=== PATIENT | female | born 1955 | race Caucasian/White ===

== ENCOUNTER 2017-09-03 08:29 | Inpatient (IN) | payer BC, OTHER ==
[~2017-09-03 08:29] MED LIST: Bisacodyl 5 MG Tab PO PRN; Cyclobenzaprine 10 MG Tab PO PRN; Iodine/Sodium Iodide 2% Tincture 30 ML Bottle ONE; Ketorolac 15 MG/ML SDV IVPUSH PRN; Lidocaine 1%/Sod Bicarbonate in NS 8.4% 1 ML Syringe IDERM PRN; Magnesium Hydroxide 400 MG/5 ML Susp 30 ML Cup PO PRN; Morphine 2 MG/ML Syringe IVPUSH PRN; Ondansetron 4 MG/2 ML SDV IVPUSH PRN; Pregabalin 25 MG Cap PO SCH; Sennosides 8.6 MG Tab PO PRN; Sodium Chloride 0.9% 10 ML Syringe FLUSH PRN; Vancomycin 1 GM SDV ONE; ceFAZolin 1 GM Vial ONE
[2017-09-03] MEDS: Lactated Ringers 1,000 ML IV SCH ×2 (08:45→16:45)
--- NOTE | 2017-09-03 08:55 | PCM.PREANE ---
Preanesthetic Assessment - Procedure Proposed Procedure: right total hip replacement - Anesthesia/Transfusion/Family Hx Anesthesia History: Prior Anesthesia Without Reaction Type of Anesthesia Reaction: Other (see below) (nausea and comit 1972 - no anesthesia problems since) Family History of Anesthesia Reaction: No Transfusion History: No Prior Transfusion(s) - Review of Systems General: No Symptoms Pulmonary: No Symptoms Cardiovascular: No Symptoms Gastrointestinal: No Symptoms, Nausea (intermitttently for 2 months) Neurological: No Symptoms Other: Reports: Depression, Anxiety - Physical Assessment NPO Status Date: 09/02/17 NPO Status Time: 21:30 Pulse: 65 O2 Sat by Pulse Oximetry: 96 Respiratory Rate: 16 Blood Pressure: 122/59 Temperature: 98.1 F Height: 5 ft 4 in Weight: 69 kg ASA Class: 2 Mental Status: Alert & Oriented x3 Airway Class: Mallampati = 1 Dentition: Reports: Normal Dentition, Bridge Thyro-Mental Finger Breadths: 3 Mouth Opening Finger Breadths: 3 ROM/Head Extension: Full Lungs: Clear to Auscultation, Normal Respiratory Effort Cardiovascular: Regular Rate, Regular Rhythm - Lab Values: Laboratory Last Values MRSA (PCR) Negative 08/21/17 15:05 - Allergies Allergies/Adverse Reactions: Allergies Allergy/AdvReac Type Severity Reaction Status Date / Time amoxicillin [From Augmentin] Allergy Vomiting Verified 08/31/17 13:06 clavulanic acid Allergy Vomiting Verified 08/31/17 13:06 [From Augmentin] escitalopram [From Lexapro] Allergy Anxiety Verified 08/31/17 13:06 Sulfa (Sulfonamide Allergy Rash Verified 08/31/17 13:06 Antibiotics) - Blood Blood Available: Yes - Acknowledgements Anesthesia Type Planned: Spinal Pt an Appropriate Candidate for the Planned Anesthesia: Yes Alternatives and Risks of Anesthesia Discussed w Pt/Guardian: Yes Pt/Guardian Understands and Agrees with Anesthesia Plan: Yes PreAnesthesia Questionnaire HEENT History: Reports: Allergic Rhinitis, Impaired Vision Cardiovascular History: Reports: Heart Murmur, High Cholesterol Respiratory History: Reports: None, Other (See Below) Gastrointestinal History: Reports: Chronic Constipation, Other (See Below) Other Gastrointestinal History: anal fissure, rectal bleeding RLQ pain Genitourinary History: Reports: Other (See Below) Other Genitourinary History: renal artery stenosis, right renal artery stent 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 (See Below) Other OB/BYN History: post menopausal bleeding, cervical polyp Musculoskeletal History: Reports: Osteoarthritis, Other (See Below) Other Musculoskeletal History: carpal tunnel syndrome, right hip pain Neurological History: Reports: None Psychiatric History: Reports: Anxiety, Depression Endocrine/Metabolic History: Reports: None Hematologic History: Reports: None Immunologic History: Reports: None Oncologic (Cancer) History: Reports: None Dermatologic History: Reports: Other (See Below) Other Dermatologic History: skin lesion - Past Surgical History Head Surgeries/Procedures: Reports: None HEENT Surgical History: Reports: Cataract Surgery Cardiovascular Surgical History: Reports: None Respiratory Surgical History: Reports: None GI Surgical History: Reports: Cholecystectomy Female Surgical History: Reports: None Male Surgical History: Reports: None Endocrine Surgical History: Reports: None Neurological Surgical History: Reports: None Musculoskeletal Surgical History: Reports: None Oncologic Surgical History: Reports: None - SUBSTANCE USE Smoking Status *Q: Former Smoker (quit May 2014) Tobacco Use Within Last Twelve Months: No Second Hand Smoke Exposure: No Days Per Week of Alcohol Use: 1 (rare) Number of Drinks Per Day: 1 Total Drinks Per Week: 1 Recreational Drug Use History: No - HOME MEDS Home Medications: Home Meds Aspirin [Children's Aspirin] 81 mg PO DAILY 08/31/17 [History] Ezetimibe [Zetia] 10 mg PO DAILY 08/31/17 [History] Pyridoxine HCl [Vitamin B-6] 100 mg PO DAILY 08/31/17 [History] Simvastatin [Zocor] 10 mg PO DAILY 08/31/17 [History] Ubidecarenone [Coq-10] 100 mg PO DAILY 08/31/17 [History] buPROPion HCl [Wellbutrin Xl] 150 mg PO DAILY 08/31/17 [History] - CURRENT (IN HOUSE) MEDS Current Meds: Current Medications Acetaminophen (Tylenol) 975 mg PO ONETIME ONE Stop: 09/03/17 09:31 Aspirin (Ecotrin) 325 mg PO BID CLAUDIA Bisacodyl (Dulcolax) 5 mg PO DAILY PRN PRN Reason: Constipation Morphine Sulfate 8 mg/Epinephrine HCl 0.3 mg/Cefuroxime Sodium 750 mg/Ketorolac Tromethamine 30 mg/Sodium Chloride 27.9 ml 0 mg .XX ONETIME ONE Stop: 09/03/17 10:31 Cyclobenzaprine HCl (Flexeril) 10 mg PO TID PRN PRN Reason: Spasms Docusate Sodium (Colace) 100 mg PO BID [facility] Famotidine (Pepcid) 20 mg PO Q12H [facility] Lactated Ringer's (Ringers, Lactated) 1,000 mls @ 125 mls/hr IV ASDIRECTED [facility] Cefazolin Sodium/Dextrose 2 gm (/ Premix) 50 mls @ 100 mls/hr IV Q8H [facility] Stop: 09/03/17 23:14 Ketorolac Tromethamine (Toradol) 15 mg IVPUSH Q6H PRN PRN Reason: Pain Lidocaine/Sodium Bicarbonate (Buffered Lidocaine 1% In Ns 8.4%) 0.25 ml IDERM ONETIME PRN PRN Reason: Prior to IV Start Stop: 09/03/17 16:00 Magnesium Hydroxide (Milk Of Magnesia) 30 ml PO BID PRN PRN Reason: Constipation Morphine Sulfate (Morphine) 2 mg IVPUSH Q2H PRN PRN Reason: Breakthrough Pain Ondansetron HCl (Zofran) 4 mg IVPUSH Q6H PRN PRN Reason: Nausea/Vomiting Oxycodone HCl (Oxycontin) 10 mg PO ASDIRECTED [facility] Oxycodone/Acetaminophen (Percocet 325-5 Mg) 1 - 2 tab PO Q4H PRN PRN Reason: Pain Pregabalin (Lyrica) 50 mg PO ASDIRECTED [facility] Senna (Senna) 8.6 mg PO BID PRN PRN Reason: Constipation Sodium Chloride (Saline Flush) 10 ml FLUSH ASDIRECTED PRN PRN Reason: Keep Vein Open Discontinued Medications Bupivacaine HCl (Marcaine 0.25%) Confirm Administered Dose 30 ml .ROUTE .STK- MED ONE Stop: 09/03/17 08:15 Cefazolin Sodium (Ancef) Confirm Administered Dose 2 gm .ROUTE .STK-MED ONE Stop: 09/03/17 08:15 Iodine (Iodine 2% Mild Tincture) Confirm Administered Dose 30 ml .ROUTE .STK- MED ONE Stop: 09/03/17 08:15 Tranexamic Acid (Cyklokapron) Confirm Administered Dose 1,000 mg .ROUTE .STK- MED ONE Stop: 09/03/17 08:15 Vancomycin HCl (Vancomycin) Confirm Administered Dose 1 gm .ROUTE .STK-MED ONE Stop: 09/03/17 08:15
[2017-09-03] MEDS ORDERED: Acetaminophen 325 MG Tab PO ONE (09:30)
[2017-09-03] MEDS ORDERED: oxyCODONE ER 10 MG TAB.ER PO SCH (10:00)
[2017-09-03] MEDS ORDERED: fentaNYL 100 MCG/2 ML SDV ONE (10:01)
[2017-09-03] MEDS ORDERED: Ondansetron 4 MG/2 ML SDV ONE (10:01)
[2017-09-03] MEDS ORDERED: Midazolam 1 MG/ML 2 ML SDV ONE (10:01)
[2017-09-03] MEDS ORDERED: Propofol 200 MG/20 ML SDV ONE ×2 (10:01→11:10)
[2017-09-03] MEDS ORDERED: Lidocaine 1% 4 ML ONE (10:02)
[2017-09-03] MEDS ORDERED: ceFAZolin 1 GM Vial ONE (10:02)
[2017-09-03] MEDS ORDERED: Bupivacaine 0.75% 30 ML SDV ONE (10:11)
[2017-09-03] MEDS ORDERED: 50% Dextrose in Water 50 ML SDV ONE (10:13)
[2017-09-03] MEDS ORDERED: Morphine PF 10 MG/10 ML SDV ONE (10:17)
[2017-09-03] MEDS ORDERED: Phenylephrine/Normal Saline 100 MCG/ML 10 ML Syringe ONE ×2 (10:59→11:07)
[2017-09-03] MEDS ORDERED: Lactated Ringers 1,000 ML ONE ×2 (11:00→11:18)
[2017-09-03] MEDS ORDERED: ePHEDrine 50 MG/ML SDV ONE (11:33)
[2017-09-03] MEDS: Bupivacaine 0.25% 30 ML SDV ONE ×2 (11:38→11:39)
[2017-09-03] MEDS: Morphine 8 MG, EPINEPHrine 0.3 MG, Cefuroxime 750 MG, Ketorolac 30 MG, Sodium Chloride ... ONE ×5 (11:38)
[2017-09-03] MEDS ORDERED: diphenhydrAMINE 50 MG/ML SDV IVPUSH PRN (12:12)
[2017-09-03] MEDS ORDERED: fentaNYL 100 MCG/2 ML SDV IVPUSH PRN (12:12)
--- NOTE | 2017-09-03 12:14 | PCM.POSTAN ---
POST ANESTHESIA ASSESSMENT - MENTAL STATUS Mental Status: Alert, Oriented - VITAL SIGNS Pulse Rate: 79 SaO2: 93 Resp Rate: 12 Blood Pressure: 97/56 Temperature: 36.9 C - RESPIRATORY Respiratory Status: Respiratory Rate WNL, Airway Patent, O2 Saturation Stable, Supplemental Oxygen - CARDIOVASCULAR CV Status: Pulse Rate WNL, Blood Pressure Stable - GASTROINTESTINAL GI Status: No Symptoms - PAIN Pain Score: 0 - POST OP HYDRATION Hydration Status: Adequate & Stable - OBSERVATIONS Free Text/Narrative:: no anesthesia complications noted
--- NOTE | 2017-09-03 13:02 | CR ---
Pelvis and right hip: AP view of the pelvis was obtained as well as lateral views of the right hip. Comparison: No prior study. Recently placed right hip prosthesis is seen. Components are aligned. Soft tissue air is noted from the surgical procedure. Mild joint space narrowing is seen superiorly within the left hip. No fracture is seen. Mild degenerative sclerosis is seen inferiorly within the right sacroiliac joint. Impression: 1. Satisfactory postoperative radiographic appearance of recently placed right hip prosthesis. 2. Mild joint space narrowing superiorly within the left hip is seen. Diagnostic code #2
[2017-09-03] MEDS ORDERED: Scopolamine 1.5 MG Transdermal Patch TRDERM PRN (14:49)
[2017-09-03] MEDS: ceFAZolin 2 GM in Premix Bag 1 BAG IV SCH (17:32)
--- NOTE | 2017-09-03 17:37 | PCM.CONS ---
H&P History of Present Illness - General Date of Service: 09/03/17 Admit Problem/Dx: Admission Diagnosis/Problem Admission Diagnosis/Problem Osteoarthritis of hip Source of Information: Patient, Old Records, Provider History Limitations: Reports: No Limitations - History of Present Illness Initial Comments - Free Text/Narative: Fernanda is a 62 yo female patient of Dr. Khoury who is post-operative day 0 of R MALORIE. [facility] medicine was consulted for post-operative medical care. At this time she is stable. Pain is controlled. She denies any chest pain, shortness of breath, palpitations. She is feeling tired. She has had about 3 bouts of mild nausea and vomiting but it has since subsided with medication. She carries a history of: dyslipidemia, depression, anxiety, renal artery stenosis s/p stent. Former smoker who quit in 2014. She is a full code. - Related Data Allergies/Adverse Reactions: Allergies Allergy/AdvReac Type Severity Reaction Status Date / Time Sulfa (Sulfonamide Allergy Rash Verified 09/03/17 09:44 Antibiotics) clavulanic acid AdvReac Vomiting Verified 09/03/17 11:44 [From Augmentin] escitalopram [From Lexapro] AdvReac Anxiety Verified 09/03/17 11:44 Home Medications: Home Meds Aspirin [Children's Aspirin] 81 mg PO DAILY 08/31/17 [History] Ezetimibe [Zetia] 10 mg PO DAILY 08/31/17 [History] Pyridoxine HCl [Vitamin B-6] 100 mg PO DAILY 08/31/17 [History] Simvastatin [Zocor] 10 mg PO DAILY 08/31/17 [History] buPROPion HCl [Wellbutrin Xl] 150 mg PO DAILY 08/31/17 [History] Past Medical History HEENT History: Reports: Allergic Rhinitis, Impaired Vision Cardiovascular History: Reports: Heart Murmur, High Cholesterol Respiratory History: Reports: None, Other (See Below) Gastrointestinal History: Reports: Chronic Constipation, Other (See Below) Other Gastrointestinal History: anal fissure, rectal bleeding RLQ pain Genitourinary History: Reports: Other (See Below) Other Genitourinary History: renal artery stenosis, right renal artery stent 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 (See Below) Other OB/BYN History: post menopausal bleeding, cervical polyp Musculoskeletal History: Reports: Osteoarthritis, Other (See Below) Other Musculoskeletal History: carpal tunnel syndrome, right hip pain Neurological History: Reports: None Psychiatric History: Reports: Anxiety, Depression Endocrine/Metabolic History: Reports: None Hematologic History: Reports: None Immunologic History: Reports: None Oncologic (Cancer) History: Reports: None Dermatologic History: Reports: Other (See Below) Other Dermatologic History: skin lesion - Infectious Disease History Infectious Disease History: Reports: Chicken Pox - Past Surgical History Head Surgeries/Procedures: Reports: None HEENT Surgical History: Reports: Cataract Surgery Cardiovascular Surgical History: Reports: None Respiratory Surgical History: Reports: None GI Surgical History: Reports: Cholecystectomy Female Surgical History: Reports: None Male Surgical History: Reports: None Endocrine Surgical History: Reports: None Neurological Surgical History: Reports: None Musculoskeletal Surgical History: Reports: None Oncologic Surgical History: Reports: None Social & Family History - Family History Family Medical History: Noncontributory - Tobacco Use Smoking Status *Q: Former Smoker Used Tobacco, but Quit: Yes Month/Year Tobacco Last Used: 2014 Second Hand Smoke Exposure: No - Caffeine Use Caffeine Use: Reports: Coffee, Soda, Tea - Alcohol Use Days Per Week of Alcohol Use: 1 (rare) Number of Drinks Per Day: 1 Total Drinks Per Week: 1 - Recreational Drug Use Recreational Drug Use: No Drug Use in Last 12 Months: No H&P Review of Systems - Review of Systems: Review Of Systems: See Below General: Reports: No Symptoms. Denies: Fever, Chills HEENT: Reports: No Symptoms Pulmonary: Reports: No Symptoms. Denies: Shortness of Breath, Pleuritic Chest Pain, Cough Cardiovascular: Reports: No Symptoms. Denies: Chest Pain, Palpitations Gastrointestinal: Reports: No Symptoms. Denies: Abdominal Pain, Diarrhea, Nausea, Vomiting Genitourinary: Reports: No Symptoms. Denies: Dysuria, Frequency, Burning, Pain , Urgency Musculoskeletal: Reports: No Symptoms Skin: Reports: No Symptoms Psychiatric: Reports: No Symptoms Neurological: Reports: No Symptoms Hematologic/Lymphatic: Reports: No Symptoms Immunologic: Reports: No Symptoms Exam - Exam Exam: See Below - Vital Signs Vital Signs: Last Vital Signs Temp 97.0 F 09/03/17 13:06 Pulse 61 09/03/17 16:02 Resp 14 09/03/17 16:02 BP 107/46 L 09/03/17 16:02 Pulse Ox 97 09/03/17 16:02 Weight: 151 lb - Exam Quality Assessment: Supplemental Oxygen (2L nasal cannula), Urinary Catheter, DVT Prophylaxis General: Alert, Oriented, Cooperative, Mild Distress HEENT: PERRLA, Hearing Intact, Mucosa Moist & [place], Nares Patent, Normal Nasal Septum, Posterior Pharynx Clear, Conjunctiva Clear, EOMI, EACs Clear, TMs Clear Neck: Supple, Trachea Midline, 2 Lungs: Clear to Auscultation, Normal Respiratory Effort Cardiovascular: Regular Rate, Regular Rhythm GI/Abdominal Exam: Normal Bowel Sounds, Soft, Non-Tender, No Organomegaly, No Distention, No Abnormal Bruit, No Mass, Pelvis Stable (Female) Exam: Deferred Rectal (Female) Exam: Deferred Back Exam: Normal Inspection, Full Range of Motion Extremities: Normal Inspection, No Pedal Edema, Normal Capillary Refill, Limited Range of Motion (s/p R MALORIE) Peripheral Pulses: 1+: Posterior Tibial (L), Posterior Tibial (R), Dorsalis Pedis (L), Dorsalis Pedis (R) Skin: Warm, Dry, Intact, Other (bandages dry and intact) Neurological: Cranial Nerves Intact (grossly) Neuro Extensive - Mental Status: Alert, Oriented x3, Normal Mood/Affect, Normal Cognition Psychiatric: Alert, Normal Affect, Normal Mood - Patient Data Lab Results Last 24 hrs: Laboratory Results - last 24 hr 09/03/17 Range/Units 09:01 Blood Type O POSITIVE Gel Antibody Screen Negative Consult PN Assessment/Plan POD#: 0 (1) Status post total hip replacement, right SNOMED Code(s): 959472180489, 291058016535 Code(s): Z96.641 - PRESENCE OF RIGHT ARTIFICIAL HIP JOINT Priority: High Current Visit: Yes (2) Dyslipidemia SNOMED Code(s): 449460231 Code(s): E78.5 - HYPERLIPIDEMIA, UNSPECIFIED Priority: Low Current Visit : Yes (3) Other specified depressive episodes SNOMED Code(s): 75037270 Code(s): F32.89 - OTHER SPECIFIED DEPRESSIVE EPISODES Priority: Low Current Visit: No (4) Anxiety SNOMED Code(s): 29634792 Code(s): F41.9 - ANXIETY DISORDER, UNSPECIFIED Priority: Low Current Visit: No (5) PRASHANTH (renal artery stenosis) SNOMED Code(s): 879014233 Code(s): I70.1 - ATHEROSCLEROSIS OF RENAL ARTERY Priority: Low Current Visit: No Problem List Initiated/Reviewed/Updated: Yes My Orders Last 24 Hours: My Active Orders 09/03/17 14:49 Scopolamine [Transderm-Scop] 1.5 mg TRDERM Q72H PRN Plan: I/P: Acute: S/P right total hip arthroplasty - post-operative day 0 -DVT prophylaxis and pain management per primary care team -PT/OT -IS/RT -Monitor oxygen saturation -Titrate oxygen as needed -Vital signs stable -Monitor labs -Pre-operative Hgb was 14.5 Chronic: Dyslipidemia Depression Anxiety Renal artery stenosis s/p stent Plan: CM for discharge planning GI prophylaxis: Pepcid DVT/PE prophylaxis: PATRICIA hanson, SCD, ASA Home medications as indicated Other orders as listed above Routine AM labs She is a full code. Thank you for allowing us to participate in the care of this patient!!
[2017-09-03] MEDS: Metoclopramide 10 MG/2 ML SDV IVPUSH SCH (19:07)
[2017-09-03] MEDS: Docusate Sodium 100 MG Cap PO SCH (20:21)
[2017-09-03] MEDS: Famotidine 20 MG Tab PO SCH (20:21)
[2017-09-03] MEDS ORDERED: Ezetimibe 10 MG Tab PO SCH (21:00)
[2017-09-03] MEDS ORDERED: buPROPion 150 MG Tab.ER PO SCH (21:00)
[2017-09-03] MEDS ORDERED: Vitamin B6-pyridOXINE 50 MG Tab PO SCH (21:00)
[2017-09-03] MEDS ORDERED: Simvastatin 10 MG Tab PO SCH (21:00)
--- NOTE | 2017-09-03 22:15 | PCM.OPNOTE ---
- General Post-Op/Procedure Note Date of Surgery/Procedure: 09/03/17 Operative Procedure(s): right total hip arthroplasty Pre Op Diagnosis: right hip osteoarthrosis Post-Op Diagnosis: Same Anesthesia Technique: Local, MAC, Spinal Primary Surgeon: Ray Khoury Anesthesia Provider: Frederic Wong Template Fitter: Britney Valle Template Fitter: Latoya Jones EBL in mLs: 350 Complications: None Condition: Good Free Text/Narrative:: Intake & Output 09/03/17 09/03/17 09/03/17 06:59 14:59 22:59 Intake Total 150 100 Output Total 350 150 Balance -200 -50
[2017-09-04] MEDS: Metoclopramide 10 MG/2 ML SDV IVPUSH SCH ×4 (00:56→12:42)
[2017-09-04] MEDS: Lactated Ringers 1,000 ML IV SCH (00:57)
[2017-09-04] MEDS: ceFAZolin 2 GM in Premix Bag 1 BAG IV SCH ×2 (01:03→09:19)
[2017-09-04] MEDS: Acetaminophen/oxyCODONE 325-5 MG Tab PO PRN ×2 (04:40→12:37)
--- NOTE | 2017-09-04 07:38 | PCM48HPAN ---
Post Anesthesia Note - EVALUATION WITHIN 48HRS OF ANESTHETIC Vital Signs in Normal Range: Yes Patient Participated in Evaluation: Yes Respiratory Function Stable: Yes Airway Patent: Yes Cardiovascular Function Stable: Yes Hydration Status Stable: Yes Pain Control Satisfactory: Yes Nausea and Vomiting Control Satisfactory: Yes Mental Status Recovered: Yes Pulse Rate: 75 Resp Rate: 18 Temperature: 36.9 C Blood Pressure: 106/74 - COMMENTS/OBSERVATIONS Free Text/Narrative:: no anesthesia complications noted
[2017-09-04] MEDS: Morphine 8 MG, EPINEPHrine 0.3 MG, Cefuroxime 750 MG, Ketorolac 30 MG, Sodium Chloride ... ONE ×5 (08:09)
[2017-09-04] MEDS ORDERED: Non-Formulary Medication 1 Each (Ubidecarenone 100 MG) PO SCH (09:00)
[2017-09-04] MEDS ORDERED: Aspirin 325 MG Tab.EC PO SCH (09:00)
--- NOTE | 2017-09-04 09:03 | PCM.CONSN ---
- General Info Date of Service: 09/04/17 Admission Dx/Problem (Free Text): Admission Diagnosis/Problem Admission Diagnosis/Problem Osteoarthritis of hip Subjective Update: In to see Fernanda today- post-op day 1. She is sitting up in bed working with PT. Overall she is doing quite well. She has no complaints. She has been sleeping well. Good appetite. Urinating. Pain is controlled. No fever, chills, nausea, vomiting, diarrhea, CP, or SOB. Incentive Spirometry. No concerns from nursing. Will be DCd back home today after PT/OT consults. Functional Status: Reports: Pain Controlled, Tolerating Diet, Ambulating, Urinating - Review of Systems General: Reports: No Symptoms. Denies: Fever, Chills HEENT: Reports: No Symptoms Pulmonary: Reports: No Symptoms. Denies: Shortness of Breath, Cough Cardiovascular: Reports: No Symptoms. Denies: Chest Pain, Palpitations, Dyspnea on Exertion Gastrointestinal: Reports: No Symptoms. Denies: Diarrhea, Nausea, Vomiting Genitourinary: Reports: No Symptoms. Denies: Dysuria, Frequency, Burning, Pain Musculoskeletal: Reports: No Symptoms Skin: Reports: No Symptoms Neurological: Reports: No Symptoms Psychiatric: Reports: No Symptoms - Patient Data Vitals - Most Recent: Last Vital Signs Temp 98.4 F 09/04/17 07:38 Pulse 75 09/04/17 07:38 Resp 18 09/04/17 07:38 BP 106/74 09/04/17 07:38 Pulse Ox 97 09/04/17 04:08 Weight - Most Recent: 159 lb 6.4 oz I&O - Last 24 Hours: Intake & Output 09/03/17 09/04/17 09/04/17 22:59 06:59 14:59 Intake Total 100 1864 Output Total 150 168 Balance -50 1696 Lab Results Last 24 Hours: Laboratory Results - last 24 hr 09/03/17 09/04/17 09/04/17 Range/Units 09:01 06:44 07:13 WBC 7.80 (3.98-10.04) K/mm3 RBC 3.61 L (3.98-5.22) M/mm3 Hgb 10.8 L (11.2-15.7) gm/L Hct 33.1 L (34.1-44.9) % MCV 91.7 (79.4-94.8) fl MCH 29.9 (25.6-32.2) pg MCHC 32.6 (32.2-35.5) g/dl RDW Std Deviation 40.4 (36.4-46.3) fL Plt Count 196 (182-369) K/mm3 MPV 9.7 (9.4-12.3) fl Sodium 136 (136-145) mEq/L Potassium 3.9 (3.5-5.1) mEq/L Chloride 104 (98-107) mEq/L Carbon Dioxide 27 (21-32) mEq/L Anion Gap 8.9 (5-15) BUN 11 (7-18) mg/dL Creatinine 0.8 (0.55-1.02) mg/dL Est Cr Clr Drug Dosing 63.77 mL/min Estimated GFR (MDRD) > 60 (>60) mL/min BUN/Creatinine Ratio 13.8 L (14-18) Glucose 96 (80-115) mg/dL Calcium 8.5 (8.5-10.1) mg/dL Total Bilirubin 0.5 (0.2-1.0) mg/dL AST 77 H (15-37) U/L ALT 96 H (14-59) U/L Alkaline Phosphatase 55 (46-116) U/L Total Protein 5.3 L (6.4-8.2) g/dl Albumin 3.0 L (3.4-5.0) g/dl Globulin 2.3 gm/dL Albumin/Globulin Ratio 1.3 (1-2) Blood Type O POSITIVE Gel Antibody Screen Negative Med Orders - Current: Current Medications Aspirin (Ecotrin) 325 mg PO BID [facility] Bisacodyl (Dulcolax) 5 mg PO DAILY PRN PRN Reason: Constipation Bupropion HCl (Wellbutrin Xl) 150 mg PO BEDTIME [facility] Last Admin: 09/03/17 20:20 Dose: 150 mg Cyclobenzaprine HCl (Flexeril) 10 mg PO TID PRN PRN Reason: Spasms Docusate Sodium (Colace) 100 mg PO BID [facility] Last Admin: 09/03/17 20:21 Dose: 100 mg Ezetimibe (Zetia) 10 mg PO BEDTIME [facility] Last Admin: 09/03/17 20:22 Dose: 10 mg Famotidine (Pepcid) 20 mg PO Q12H [facility] Last Admin: 09/03/17 20:21 Dose: 20 mg Lactated Ringer's (Ringers, Lactated) 1,000 mls @ 125 mls/hr IV ASDIRECTED [facility] Last Admin: 09/04/17 00:57 Dose: 125 mls/hr Cefazolin Sodium/Dextrose 2 gm (/ Premix) 50 mls @ 100 mls/hr IV Q8H [facility] Stop: 09/04/17 10:29 Last Admin: 09/04/17 01:03 Dose: 100 mls/hr Ketorolac Tromethamine (Toradol) 15 mg IVPUSH Q6H PRN PRN Reason: Pain Magnesium Hydroxide (Milk Of Magnesia) 30 ml PO BID PRN PRN Reason: Constipation Metoclopramide HCl (Reglan) 10 mg IVPUSH Q6H [facility] Stop: 09/05/17 01:01 Last Admin: 09/04/17 06:04 Dose: 10 mg Miscellaneous Information (Remove Patch) 0 ea TRDERM ONETIME ONE Stop: 09/06/17 14:31 Morphine Sulfate (Morphine) 2 mg IVPUSH Q2H PRN PRN Reason: Breakthrough Pain Ondansetron HCl (Zofran) 4 mg IVPUSH Q6H PRN PRN Reason: Nausea/Vomiting Last Admin: 09/03/17 14:06 Dose: 4 mg Oxycodone/Acetaminophen (Percocet 325-5 Mg) 1 - 2 tab PO Q4H PRN PRN Reason: Pain Last Admin: 09/04/17 04:40 Dose: 2 tab Pyridoxine HCl (Vitamin B6-Pyridoxine) 100 mg PO BEDTIME [facility] Last Admin: 09/03/17 20:22 Dose: 100 mg Scopolamine (Transderm-Scop) 1.5 mg TRDERM Q72H PRN PRN Reason: Nausea Last Admin: 09/03/17 15:07 Dose: 1.5 mg Senna (Senna) 8.6 mg PO BID PRN PRN Reason: Constipation Simvastatin (Zocor) 10 mg PO BEDTIME [facility] Last Admin: 09/03/17 20:21 Dose: 10 mg Sodium Chloride (Saline Flush) 10 ml FLUSH ASDIRECTED PRN PRN Reason: Keep Vein Open Discontinued Medications Acetaminophen (Tylenol) 975 mg PO ONETIME ONE Stop: 09/03/17 09:31 Last Admin: 09/03/17 09:25 Dose: 975 mg Bupivacaine HCl (Marcaine 0.25%) Confirm Administered Dose 30 ml .ROUTE .STK- MED ONE Stop: 09/03/17 08:15 Last Admin: 09/03/17 11:38 Dose: 30 ml Bupivacaine HCl (Sensorcaine-Mpf 0.75%) Confirm Administered Dose 30 ml .ROUTE .STK-MED ONE Stop: 09/03/17 10:12 Cefazolin Sodium (Ancef) Confirm Administered Dose 2 gm .ROUTE .STK-MED ONE Stop: 09/03/17 08:15 Last Admin: 09/03/17 11:34 Dose: 2 gm Cefazolin Sodium (Ancef) Confirm Administered Dose 2 gm .ROUTE .STK-MED ONE Stop: 09/03/17 10:03 Morphine Sulfate 8 mg/Epinephrine HCl 0.3 mg/Cefuroxime Sodium 750 mg/Ketorolac Tromethamine 30 mg/Sodium Chloride 27.9 ml 0 mg .XX ONETIME ONE Stop: 09/03/17 10:31 Last Admin: 09/04/17 08:09 Dose: Not Given Dextrose/Water (Dextrose 50% In Water) Confirm Administered Dose 50 ml .ROUTE .STK-MED ONE Stop: 09/03/17 10:14 Diphenhydramine HCl (Benadryl) 25 mg IVPUSH Q6H PRN PRN Reason: Itching Stop: 09/03/17 14:30 Ephedrine Sulfate (Ephedrine Sulfate) Confirm Administered Dose 50 mg .ROUTE .STK-MED ONE Stop: 09/03/17 11:34 Fentanyl (Sublimaze) Confirm Administered Dose 100 mcg .ROUTE .STK-MED ONE Stop: 09/03/17 10:02 Fentanyl (Sublimaze) 50 mcg IVPUSH Q5M PRN PRN Reason: PAIN Stop: 09/03/17 14:30 Lidocaine HCl (Xylocaine-Mpf 1%) Confirm Administered Dose 4 mls @ as directed .ROUTE .STK-MED ONE Stop: 09/03/17 10:03 Lactated Ringer's (Ringers, Lactated) Confirm Administered Dose 1,000 mls @ as directed .ROUTE .STK-MED ONE Stop: 09/03/17 11:01 Lactated Ringer's (Ringers, Lactated) Confirm Administered Dose 1,000 mls @ as directed .ROUTE .STK-MED ONE Stop: 09/03/17 11:19 Iodine (Iodine 2% Mild Tincture) Confirm Administered Dose 30 ml .ROUTE .STK- MED ONE Stop: 09/03/17 08:15 Last Admin: 09/03/17 11:30 Dose: 18 ml Lidocaine HCl (Xylocaine-Mpf 1%) Confirm Administered Dose 5 ml .ROUTE .STK-MED ONE Stop: 09/03/17 10:09 Lidocaine/Sodium Bicarbonate (Buffered Lidocaine 1% In Ns 8.4%) 0.25 ml IDERM ONETIME PRN PRN Reason: Prior to IV Start Stop: 09/03/17 16:00 Last Admin: 09/03/17 08:44 Dose: 0.25 ml Midazolam HCl (Versed 1 Mg/Ml) Confirm Administered Dose 2 mg .ROUTE .ST-MED ONE Stop: 09/03/17 10:02 Morphine Sulfate (Duramorph Pf) Confirm Administered Dose 10 mg .ROUTE .STK-MED ONE Stop: 09/03/17 10:18 Non-Formulary Medication (Ubidecarenone) 100 mg PO DAILY [facility] Ondansetron HCl (Zofran) Confirm Administered Dose 4 mg .ROUTE .STK-MED ONE Stop: 09/03/17 10:02 Oxycodone HCl (Oxycontin) 10 mg PO ASDIRECTED [facility] Last Admin: 09/03/17 09:25 Dose: 10 mg Phenylephrine HCl (Phenylephrine In Ns 100 Mcg/Ml) Confirm Administered Dose 1 mg .ROUTE .STK-MED ONE Stop: 09/03/17 11:00 Phenylephrine HCl (Phenylephrine In Ns 100 Mcg/Ml) Confirm Administered Dose 1 mg .ROUTE .STK-MED ONE Stop: 09/03/17 11:08 Pregabalin (Lyrica) 50 mg PO ASDIRECTED [facility] Last Admin: 09/03/17 09:25 Dose: 50 mg Propofol (Diprivan 20 Ml) Confirm Administered Dose 200 mg .ROUTE .STK-MED ONE Stop: 09/03/17 10:02 Propofol (Diprivan 20 Ml) Confirm Administered Dose 200 mg .ROUTE .STK-MED ONE Stop: 09/03/17 11:11 Tranexamic Acid (Cyklokapron) Confirm Administered Dose 1,000 mg .ROUTE .STK- MED ONE Stop: 09/03/17 08:15 Last Admin: 09/03/17 11:40 Dose: 1,000 mg Vancomycin HCl (Vancomycin) Confirm Administered Dose 1 gm .ROUTE .STK-MED ONE Stop: 09/03/17 08:15 Last Admin: 09/03/17 11:39 Dose: 1 gm - Exam Quality Assessment: DVT Prophylaxis General: Alert, Oriented, Cooperative, No Acute Distress HEENT: Pupils Equal, Pupils Reactive, EOMI, Mucous Membr. Moist/[place] Neck: Supple Lungs: Clear to Auscultation, Normal Respiratory Effort Cardiovascular: Regular Rate, Regular Rhythm GI/Abdominal Exam: Normal Bowel Sounds, Soft, Non-Tender, No Organomegaly, No Distention, No Abnormal Bruit, No Mass, Pelvis Stable (Female) Exam: Deferred Back Exam: Normal Inspection, Full Range of Motion Extremities: Normal Inspection, Non-Tender, No Pedal Edema, Normal Capillary Refill, Limited Range of Motion (s/p R MALORIE) Peripheral Pulses: 2+: Posterior Tibial (L), Posterior Tibial (R), Dorsalis Pedis (L), Dorsalis Pedis (R) Skin: Warm, Dry, Intact Wound/Incisions: Healing Well, Dressing Dry and Intact, No Drainage Neurological: No New Focal Deficit Psy/Mental Status: Alert, Normal Affect, Normal Mood Consult PN Assessment/Plan POD#: 1 (1) Status post total hip replacement, right SNOMED Code(s): 805830151793, 288571689662 Code(s): Z96.641 - PRESENCE OF RIGHT ARTIFICIAL HIP JOINT Priority: High Current Visit: Yes (2) Dyslipidemia SNOMED Code(s): 478297097 Code(s): E78.5 - HYPERLIPIDEMIA, UNSPECIFIED Priority: Low Current Visit : Yes (3) Other specified depressive episodes SNOMED Code(s): 69398057 Code(s): F32.89 - OTHER SPECIFIED DEPRESSIVE EPISODES Priority: Low Current Visit: No (4) Anxiety SNOMED Code(s): 02238022 Code(s): F41.9 - ANXIETY DISORDER, UNSPECIFIED Priority: Low Current Visit: No (5) PRASHANTH (renal artery stenosis) SNOMED Code(s): 919629530 Code(s): I70.1 - ATHEROSCLEROSIS OF RENAL ARTERY Priority: Low Current Visit: No Problem List Initiated/Reviewed/Updated: Yes My Orders Last 24 Hours: My Active Orders 09/03/17 14:49 Scopolamine [Transderm-Scop] 1.5 mg TRDERM Q72H PRN 09/06/17 14:30 Remove Patch 0 ea TRDERM ONETIME ONE Plan: I/P: Acute: S/P right total hip arthroplasty - post-operative day 0 -DVT prophylaxis and pain management per primary care team -PT/OT -IS/RT -Monitor oxygen saturation -Titrate oxygen as needed -Vital signs stable -Monitor labs -Pre-operative Hgb was 14.5-->10.8 Chronic: Dyslipidemia Depression Anxiety Renal artery stenosis s/p stent Plan: CM for discharge planning GI prophylaxis: Pepcid DVT/PE prophylaxis: PATRICIA hanson, SCD, ASA Home medications as indicated Other orders as listed above Routine AM labs She is a full code. Thank you for allowing us to participate in the care of this patient!! From a hospital standpoint, this patient is clear for discharge.
[2017-09-04] MEDS: Famotidine 20 MG Tab PO SCH (09:18)
[2017-09-04] MEDS: Docusate Sodium 100 MG Cap PO SCH (09:18)
--- NOTE | 2017-09-04 12:46 | PCM.SURGPN ---
- General Info Date of Service: 09/04/17 POD#: 1 Functional Status: Reports: Pain Controlled, Tolerating Diet, Ambulating, Urinating, Incentive Spirometry - Review of Systems Musculoskeletal: Reports: Other (The pt feels prepared for discharge to home.) - Patient Data Vitals - Most Recent: Last Vital Signs Temp 98.4 F 09/04/17 07:38 Pulse 75 09/04/17 07:38 Resp 18 09/04/17 07:38 BP 106/74 09/04/17 07:38 Pulse Ox 97 09/04/17 04:08 Weight - Most Recent: 159 lb 6.4 oz I&O - Last 24 Hours: Intake & Output 09/03/17 09/04/17 09/04/17 22:59 06:59 14:59 Intake Total 100 1864 420 Output Total 150 168 Balance -50 0956 420 Lab Results Last 24 Hrs: Laboratory Results - last 24 hr 09/04/17 09/04/17 Range/Units 06:44 07:13 WBC 7.80 (3.98-10.04) K/mm3 RBC 3.61 L (3.98-5.22) M/mm3 Hgb 10.8 L (11.2-15.7) gm/L Hct 33.1 L (34.1-44.9) % MCV 91.7 (79.4-94.8) fl MCH 29.9 (25.6-32.2) pg MCHC 32.6 (32.2-35.5) g/dl RDW Std Deviation 40.4 (36.4-46.3) fL Plt Count 196 (182-369) K/mm3 MPV 9.7 (9.4-12.3) fl Sodium 136 (136-145) mEq/L Potassium 3.9 (3.5-5.1) mEq/L Chloride 104 (98-107) mEq/L Carbon Dioxide 27 (21-32) mEq/L Anion Gap 8.9 (5-15) BUN 11 (7-18) mg/dL Creatinine 0.8 (0.55-1.02) mg/dL Est Cr Clr Drug Dosing 63.77 mL/min Estimated GFR (MDRD) > 60 (>60) mL/min BUN/Creatinine Ratio 13.8 L (14-18) Glucose 96 (80-115) mg/dL Calcium 8.5 (8.5-10.1) mg/dL Total Bilirubin 0.5 (0.2-1.0) mg/dL AST 77 H (15-37) U/L ALT 96 H (14-59) U/L Alkaline Phosphatase 55 (46-116) U/L Total Protein 5.3 L (6.4-8.2) g/dl Albumin 3.0 L (3.4-5.0) g/dl Globulin 2.3 gm/dL Albumin/Globulin Ratio 1.3 (1-2) Med Orders - Current: Current Medications Aspirin (Ecotrin) 325 mg PO BID [facility] Last Admin: 09/04/17 09:18 Dose: 325 mg Bisacodyl (Dulcolax) 5 mg PO DAILY PRN PRN Reason: Constipation Bupropion HCl (Wellbutrin Xl) 150 mg PO BEDTIME [facility] Last Admin: 09/03/17 20:20 Dose: 150 mg Cyclobenzaprine HCl (Flexeril) 10 mg PO TID PRN PRN Reason: Spasms Docusate Sodium (Colace) 100 mg PO BID [facility] Last Admin: 09/04/17 09:18 Dose: 100 mg Ezetimibe (Zetia) 10 mg PO BEDTIME [facility] Last Admin: 09/03/17 20:22 Dose: 10 mg Famotidine (Pepcid) 20 mg PO Q12H [facility] Last Admin: 09/04/17 09:18 Dose: 20 mg Lactated Ringer's (Ringers, Lactated) 1,000 mls @ 125 mls/hr IV ASDIRECTED [facility] Last Admin: 09/04/17 00:57 Dose: 125 mls/hr Ketorolac Tromethamine (Toradol) 15 mg IVPUSH Q6H PRN PRN Reason: Pain Magnesium Hydroxide (Milk Of Magnesia) 30 ml PO BID PRN PRN Reason: Constipation Metoclopramide HCl (Reglan) 10 mg IVPUSH Q6H [facility] Stop: 09/05/17 01:01 Last Admin: 09/04/17 12:42 Dose: Not Given Miscellaneous Information (Remove Patch) 0 ea TRDERM ONETIME ONE Stop: 09/06/17 14:31 Morphine Sulfate (Morphine) 2 mg IVPUSH Q2H PRN PRN Reason: Breakthrough Pain Ondansetron HCl (Zofran) 4 mg IVPUSH Q6H PRN PRN Reason: Nausea/Vomiting Last Admin: 09/03/17 14:06 Dose: 4 mg Oxycodone/Acetaminophen (Percocet 325-5 Mg) 1 - 2 tab PO Q4H PRN PRN Reason: Pain Last Admin: 09/04/17 12:37 Dose: 2 tab Pyridoxine HCl (Vitamin B6-Pyridoxine) 100 mg PO BEDTIME [facility] Last Admin: 09/03/17 20:22 Dose: 100 mg Scopolamine (Transderm-Scop) 1.5 mg TRDERM Q72H PRN PRN Reason: Nausea Last Admin: 09/03/17 15:07 Dose: 1.5 mg Senna (Senna) 8.6 mg PO BID PRN PRN Reason: Constipation Last Admin: 09/04/17 12:37 Dose: 8.6 mg Simvastatin (Zocor) 10 mg PO BEDTIME [facility] Last Admin: 09/03/17 20:21 Dose: 10 mg Sodium Chloride (Saline Flush) 10 ml FLUSH ASDIRECTED PRN PRN Reason: Keep Vein Open Discontinued Medications Acetaminophen (Tylenol) 975 mg PO ONETIME ONE Stop: 09/03/17 09:31 Last Admin: 09/03/17 09:25 Dose: 975 mg Bupivacaine HCl (Marcaine 0.25%) Confirm Administered Dose 30 ml .ROUTE .STK- MED ONE Stop: 09/03/17 08:15 Last Admin: 09/03/17 11:38 Dose: 30 ml Bupivacaine HCl (Sensorcaine-Mpf 0.75%) Confirm Administered Dose 30 ml .ROUTE .STK-MED ONE Stop: 09/03/17 10:12 Cefazolin Sodium (Ancef) Confirm Administered Dose 2 gm .ROUTE .STK-MED ONE Stop: 09/03/17 08:15 Last Admin: 09/03/17 11:34 Dose: 2 gm Cefazolin Sodium (Ancef) Confirm Administered Dose 2 gm .ROUTE .STK-MED ONE Stop: 09/03/17 10:03 Morphine Sulfate 8 mg/Epinephrine HCl 0.3 mg/Cefuroxime Sodium 750 mg/Ketorolac Tromethamine 30 mg/Sodium Chloride 27.9 ml 0 mg .XX ONETIME ONE Stop: 09/03/17 10:31 Last Admin: 09/04/17 08:09 Dose: Not Given Dextrose/Water (Dextrose 50% In Water) Confirm Administered Dose 50 ml .ROUTE .STK-MED ONE Stop: 09/03/17 10:14 Diphenhydramine HCl (Benadryl) 25 mg IVPUSH Q6H PRN PRN Reason: Itching Stop: 09/03/17 14:30 Ephedrine Sulfate (Ephedrine Sulfate) Confirm Administered Dose 50 mg .ROUTE .STK-MED ONE Stop: 09/03/17 11:34 Fentanyl (Sublimaze) Confirm Administered Dose 100 mcg .ROUTE .STK-MED ONE Stop: 09/03/17 10:02 Fentanyl (Sublimaze) 50 mcg IVPUSH Q5M PRN PRN Reason: PAIN Stop: 09/03/17 14:30 Cefazolin Sodium/Dextrose 2 gm (/ Premix) 50 mls @ 100 mls/hr IV Q8H [facility] Stop: 09/04/17 10:29 Last Admin: 09/04/17 09:19 Dose: 100 mls/hr Lidocaine HCl (Xylocaine-Mpf 1%) Confirm Administered Dose 4 mls @ as directed .ROUTE .STK-MED ONE Stop: 09/03/17 10:03 Lactated Ringer's (Ringers, Lactated) Confirm Administered Dose 1,000 mls @ as directed .ROUTE .STK-MED ONE Stop: 09/03/17 11:01 Lactated Ringer's (Ringers, Lactated) Confirm Administered Dose 1,000 mls @ as directed .ROUTE .STK-MED ONE Stop: 09/03/17 11:19 Iodine (Iodine 2% Mild Tincture) Confirm Administered Dose 30 ml .ROUTE .STK- MED ONE Stop: 09/03/17 08:15 Last Admin: 09/03/17 11:30 Dose: 18 ml Lidocaine HCl (Xylocaine-Mpf 1%) Confirm Administered Dose 5 ml .ROUTE .STK-MED ONE Stop: 09/03/17 10:09 Lidocaine/Sodium Bicarbonate (Buffered Lidocaine 1% In Ns 8.4%) 0.25 ml IDERM ONETIME PRN PRN Reason: Prior to IV Start Stop: 09/03/17 16:00 Last Admin: 09/03/17 08:44 Dose: 0.25 ml Midazolam HCl (Versed 1 Mg/Ml) Confirm Administered Dose 2 mg .ROUTE .STK-MED ONE Stop: 09/03/17 10:02 Morphine Sulfate (Duramorph Pf) Confirm Administered Dose 10 mg .ROUTE .STK-MED ONE Stop: 09/03/17 10:18 Non-Formulary Medication (Ubidecarenone) 100 mg PO DAILY [facility] Ondansetron HCl (Zofran) Confirm Administered Dose 4 mg .ROUTE .STK-MED ONE Stop: 09/03/17 10:02 [facility] Admin: 09/03/17 09:25 Dose: 10 mg Phenylephrine HCl (Phenylephrine In Ns 100 Mcg/Ml) Confirm Administered Dose 1 mg .ROUTE .STK-MED ONE Stop: 09/03/17 11:00 Phenylephrine HCl (Phenylephrine In Ns 100 Mcg/Ml) Confirm Administered Dose 1 mg .ROUTE .STK-MED ONE Stop: 09/03/17 11:08 [facility] Admin: 09/03/17 09:25 Dose: 50 mg Propofol (Diprivan 20 Ml) Confirm Administered Dose 200 mg .ROUTE .STK-MED ONE Stop: 09/03/17 10:02 Propofol (Diprivan 20 Ml) Confirm Administered Dose 200 mg .ROUTE .STK-MED ONE Stop: 09/03/17 11:11 Tranexamic Acid (Cyklokapron) Confirm Administered Dose 1,000 mg .ROUTE .STK- MED ONE Stop: 09/03/17 08:15 Last Admin: 09/03/17 11:40 Dose: 1,000 mg Vancomycin HCl (Vancomycin) Confirm Administered Dose 1 gm .ROUTE .STK-MED ONE Stop: 09/03/17 08:15 Last Admin: 09/03/17 11:39 Dose: 1 gm - Exam Wound/Incisions: Dressing Dry and Intact General: Alert, Cooperative, No Acute Distress Lungs: Normal Respiratory Effort Extremities: Other (NVS intact for RLE. Kosta's negative. Right thigh soft.) - Problem List Review Problem List Initiated/Reviewed/Updated: Yes - My Orders Last 24 Hours: Active Orders 24 hr Category Date Time Status Patient Status [ADT] Routine ADT 09/03/17 19:47 Active Communication Order [RC] ASDIRECTED Care 09/03/17 12:12 Active Notify Provider [RC] ASDIRECTED Care 09/03/17 12:12 Active Pulse Oximetry [RC] ASDIRECTED Care 09/03/17 12:12 Active Ready for Discharge [RC] PER UNIT ROUTINE Care 09/04/17 11:22 Active Aspirin [Ecotrin] Med 09/04/17 09:00 Active 325 mg PO BID Docusate Sodium [Colace] Med 09/03/17 21:00 Active 100 mg PO BID Ezetimibe [Zetia] Med 09/03/17 21:00 Active 10 mg PO BEDTIME Famotidine [Pepcid] Med 09/03/17 21:00 Active 20 mg PO Q12H Metoclopramide [Reglan] Med 09/03/17 19:00 Active 10 mg IVPUSH Q6H Remove Patch Med 09/06/17 14:30 Once 0 ea TRDERM ONETIME ONE Scopolamine [Transderm-Scop] Med 09/03/17 14:49 Active 1.5 mg TRDERM Q72H PRN Simvastatin [Zocor] Med 09/03/17 21:00 Active 10 mg PO BEDTIME Vitamin B6-pyridOXINE Med 09/03/17 21:00 Active 100 mg PO BEDTIME buPROPion [Wellbutrin XL] Med 09/03/17 21:00 Active 150 mg PO BEDTIME EKG 12 Lead [EK] Routine Ther 09/03/17 19:45 Ordered Medication Orders Aspirin (Ecotrin) 325 mg PO BID [facility] Last Admin: 09/04/17 09:18 Dose: 325 mg Bisacodyl (Dulcolax) 5 mg PO DAILY PRN PRN Reason: Constipation Bupropion HCl (Wellbutrin Xl) 150 mg PO BEDTIME [facility] Last Admin: 09/03/17 20:20 Dose: 150 mg Cyclobenzaprine HCl (Flexeril) 10 mg PO TID PRN PRN Reason: Spasms Docusate Sodium (Colace) 100 mg PO BID [facility] Last Admin: 09/04/17 09:18 Dose: 100 mg Admin: 09/03/17 20:21 Dose: 100 mg Ezetimibe (Zetia) 10 mg PO BEDTIME [facility] Last Admin: 09/03/17 20:22 Dose: 10 mg Famotidine (Pepcid) 20 mg PO Q12H [facility] Last Admin: 09/04/17 09:18 Dose: 20 mg Admin: 09/03/17 20:21 Dose: 20 mg Lactated Ringer's (Ringers, Lactated) 1,000 mls @ 125 mls/hr IV ASDIRECTED [facility] Last Admin: 09/04/17 00:57 Dose: 125 mls/hr Infusion: 09/04/17 00:45 Dose: 125 mls/hr Admin: 09/03/17 16:45 Dose: 125 mls/hr Infusion: 09/03/17 16:45 Dose: 125 mls/hr Admin: 09/03/17 08:45 Dose: 125 mls/hr Ketorolac Tromethamine (Toradol) 15 mg IVPUSH Q6H PRN PRN Reason: Pain Magnesium Hydroxide (Milk Of Magnesia) 30 ml PO BID PRN PRN Reason: Constipation Metoclopramide HCl (Reglan) 10 mg IVPUSH Q6H [facility] Stop: 09/05/17 01:01 Last Admin: 09/04/17 12:42 Dose: Admin: 09/04/17 06:04 Dose: 10 mg Admin: 09/04/17 00:56 Dose: 10 mg Admin: 09/03/17 19:07 Dose: 10 mg Miscellaneous Information (Remove Patch) 0 ea TRDERM ONETIME ONE Stop: 09/06/17 14:31 Morphine Sulfate (Morphine) 2 mg IVPUSH Q2H PRN PRN Reason: Breakthrough Pain Ondansetron HCl (Zofran) 4 mg IVPUSH Q6H PRN PRN Reason: Nausea/Vomiting Last Admin: 09/03/17 14:06 Dose: 4 mg Oxycodone/Acetaminophen (Percocet 325-5 Mg) 1 - 2 tab PO Q4H PRN PRN Reason: Pain Last Admin: 09/04/17 12:37 Dose: 2 tab Admin: 09/04/17 04:40 Dose: 2 tab Pyridoxine HCl (Vitamin B6-Pyridoxine) 100 mg PO BEDTIME [facility] Last Admin: 09/03/17 20:22 Dose: 100 mg Scopolamine (Transderm-Scop) 1.5 mg TRDERM Q72H PRN PRN Reason: Nausea Last Admin: 09/03/17 15:07 Dose: 1.5 mg Senna (Senna) 8.6 mg PO BID PRN PRN Reason: Constipation Last Admin: 09/04/17 12:37 Dose: 8.6 mg Simvastatin (Zocor) 10 mg PO BEDTIME [facility] Last Admin: 09/03/17 20:21 Dose: 10 mg Sodium Chloride (Saline Flush) 10 ml FLUSH ASDIRECTED PRN PRN Reason: Keep Vein Open - Assessment Assessment (Free Text/Narrative):: POD#1 - right MALORIE - Plan Plan (Free Text/Narrative):: 1. Hgb 10.8. 2. Xarelto for VTE prophylaxis. The pt is aware and agreeable. 3. Percocet and Flexeril for pain management at home. 4. [facility]. The pt's case was discussed with Dr. Khoury today.
--- NOTE | 2017-09-04 12:49 | PCM.DCSUM1 ---
Discharge Summary - Hospital Course Brief History: Fernanda is a 62 yo female who underwent right MALORIE with Dr. Khoury on 09-03-2017. The procedure was completed under spinal anesthesia. The pt tolerated the procedure well and was admitted to the Medical-Surgical Unit. Medical management was provided by the Hospitalist service. The pt's Hospital course was uneventful. The pt's Hgb on POD#1 was 10.8. SCDs and TEDs were ordered and the pt was discharged with a rx for Xarelto for VTE prophylaxis. A Mepilex dressing was placed at the incision site at the time of surgery and remained clean and dry. The pt participated in P.T. and O.T. and progressed well. She followed the MALORIE precautions. The pt was allowed to WBAT. On POD#1 , the pt was deemed appropriate to discharge to home with her . - Discharge Data Discharge Date: 09/04/17 Discharge Disposition: Home, Self-Care 01 Condition: Good - Patient Summary/Data Operative Procedure(s) Performed: right total hip arthroplasty Consults: Consultations 09/03/17 06:44 OT Evaluation and Treatment [CONS] Routine PT Evaluation and Treatment [CONS] Routine 09/03/17 06:45 Consult to Physician [CONS] Routine - Patient Instructions Diet: Usual Diet as Tolerated Activity: Apply Ice, As Tolerated, Elevate Extremity, Full Weight Bearing Activity, Other: Total hip arthroplasty precautions. Driving: Do Not Drive Showering/Bathing: May Shower Wound/Incision Care: Keep Operative Site/Wound Site Clean and Dry, Do NOT Change Dressing Notify Provider of: Fever, Increased Pain, Swelling and Redness, Drainage, Nausea and/or Vomiting Other/Special Instructions: Please get up and moving around every hour while awake. This helps to prevent blood clots. Please use your walker and have help with mobility as needed. Please take the Xarelto blood thinner medication daily as directed. At home, please complete the exercises that you learned during the Hospital stay. Schedule for physical therapy. Follow the total hip precautions. Use the pain medication as needed. The medication may cause drowsiness and constipation. Contact your primary care provider for instructions if you are constipated. You may use a stool softener like docusate sodium or Colace 100mg twice daily and/or a laxative like Miralax daily for constipation. Increase your water and fiber intake while you are using the pain medication. Please try to wean from use of the pain medication as soon as able. Wear the PATRICIA hose during the day and you may remove these at night. Elevate the limb to decrease swelling. Place ice to the area often. Place a towel between your skin and the blue pad. Use the incentive spirometer often. Take deep breaths throughout the day. Increase your protein intake while you are healing. If you have diabetes, please closely monitor your blood sugars and notify your primary care provider with abnormal values. Call the Clinic with questions or concerns - [phone]. - Discharge Plan Prescriptions/Med Rec: Acetaminophen/oxyCODONE [Percocet 325-5 MG] 1 - 2 tab PO Q6H PRN #60 tablet PRN Reason: Pain Cyclobenzaprine [Flexeril] 10 mg PO TID PRN #40 tablet PRN Reason: Spasms Rivaroxaban [Xarelto] 10 mg PO DAILY #35 tablet Home Medications: Home Meds Aspirin [Children's Aspirin] 81 mg PO DAILY 08/31/17 [History] Ezetimibe [Zetia] 10 mg PO DAILY 08/31/17 [History] Pyridoxine HCl [Vitamin B-6] 100 mg PO DAILY 08/31/17 [History] Simvastatin [Zocor] 10 mg PO DAILY 08/31/17 [History] buPROPion HCl [Wellbutrin Xl] 150 mg PO DAILY 08/31/17 [History] Acetaminophen/oxyCODONE [Percocet 325-5 MG] 1 - 2 tab PO Q6H PRN #60 tablet [Rx] Bisacodyl [Dulcolax] 5 mg PO DAILY PRN tablet 09/04/17 [Rx] Cyclobenzaprine [Flexeril] 10 mg PO TID PRN #40 tablet 09/04/17 [Rx] Docusate Sodium [Colace] 100 mg PO BID cap 09/04/17 [Rx] Famotidine [Pepcid] 20 mg PO Q12H tablet 09/04/17 [Rx] Magnesium Hydroxide [Milk of Magnesia] 30 ml PO BID PRN cup 09/04/17 [Rx] Rivaroxaban [Xarelto] 10 mg PO DAILY #35 tablet 09/04/17 [Rx] Sennosides [Senna] 8.6 mg PO BID PRN tablet 09/04/17 [Rx] Patient Handouts: Total Hip Replacement, Care After, Total Hip Replacement, [id number] Referrals: Britney Valle PA-C [Physician [employer]] - 09/11/17 10:45 am (Please follow- up with Dr. Khoury/Leonard at your previously scheduled appointments on September 11 at 1045am. The next appointment is on SundaySeptember 18 at 1045 am. ) - Patient Data Vitals - Most Recent: Last Vital Signs Temp 98.4 F 09/04/17 07:38 Pulse 75 09/04/17 07:38 Resp 18 09/04/17 07:38 BP 106/74 09/04/17 07:38 Pulse Ox 97 09/04/17 04:08 Weight - Most Recent: 159 lb 6.4 oz I&O - Last 24 hours: Intake & Output 09/03/17 09/04/17 09/04/17 22:59 06:59 14:59 Intake Total 100 1864 420 Output Total 150 168 Balance -50 2265 420 Lab Results - Last 24 hrs: Laboratory Results - last 24 hr 09/04/17 09/04/17 Range/Units 06:44 07:13 WBC 7.80 (3.98-10.04) K/mm3 RBC 3.61 L (3.98-5.22) M/mm3 Hgb 10.8 L (11.2-15.7) gm/L Hct 33.1 L (34.1-44.9) % MCV 91.7 (79.4-94.8) fl MCH 29.9 (25.6-32.2) pg MCHC 32.6 (32.2-35.5) g/dl RDW Std Deviation 40.4 (36.4-46.3) fL Plt Count 196 (182-369) K/mm3 MPV 9.7 (9.4-12.3) fl Sodium 136 (136-145) mEq/L Potassium 3.9 (3.5-5.1) mEq/L Chloride 104 (98-107) mEq/L Carbon Dioxide 27 (21-32) mEq/L Anion Gap 8.9 (5-15) BUN 11 (7-18) mg/dL Creatinine 0.8 (0.55-1.02) mg/dL Est Cr Clr Drug Dosing 63.77 mL/min Estimated GFR (MDRD) > 60 (>60) mL/min BUN/Creatinine Ratio 13.8 L (14-18) Glucose 96 (80-115) mg/dL Calcium 8.5 (8.5-10.1) mg/dL Total Bilirubin 0.5 (0.2-1.0) mg/dL AST 77 H (15-37) U/L ALT 96 H (14-59) U/L Alkaline Phosphatase 55 (46-116) U/L Total Protein 5.3 L (6.4-8.2) g/dl Albumin 3.0 L (3.4-5.0) g/dl Globulin 2.3 gm/dL Albumin/Globulin Ratio 1.3 (1-2) Med Orders - Current: Current Medications Aspirin (Ecotrin) 325 mg PO BID COUNTS INCLUDE 234 BEDS AT THE [facility] Last Admin: 09/04/17 09:18 Dose: 325 mg Bisacodyl (Dulcolax) 5 mg PO DAILY PRN PRN Reason: Constipation Bupropion HCl (Wellbutrin Xl) 150 mg PO BEDTIME COUNTS INCLUDE 234 BEDS AT THE [facility] Last Admin: 09/03/17 20:20 Dose: 150 mg Cyclobenzaprine HCl (Flexeril) 10 mg PO TID PRN PRN Reason: Spasms Docusate Sodium (Colace) 100 mg PO BID COUNTS INCLUDE 234 BEDS AT THE [facility] Last Admin: 09/04/17 09:18 Dose: 100 mg Ezetimibe (Zetia) 10 mg PO BEDTIME COUNTS INCLUDE 234 BEDS AT THE [facility] Last Admin: 09/03/17 20:22 Dose: 10 mg Famotidine (Pepcid) 20 mg PO Q12H COUNTS INCLUDE 234 BEDS AT THE [facility] Last Admin: 09/04/17 09:18 Dose: 20 mg Lactated Ringer's (Ringers, Lactated) 1,000 mls @ 125 mls/hr IV ASDIRECTED COUNTS INCLUDE 234 BEDS AT THE [facility] Last Admin: 09/04/17 00:57 Dose: 125 mls/hr Ketorolac Tromethamine (Toradol) 15 mg IVPUSH Q6H PRN PRN Reason: Pain Magnesium Hydroxide (Milk Of Magnesia) 30 ml PO BID PRN PRN Reason: Constipation Metoclopramide HCl (Reglan) 10 mg IVPUSH Q6H COUNTS INCLUDE 234 BEDS AT THE [facility] Stop: 09/05/17 01:01 Last Admin: 09/04/17 12:42 Dose: Not Given Miscellaneous Information (Remove Patch) 0 ea TRDERM ONETIME ONE Stop: 09/06/17 14:31 Morphine Sulfate (Morphine) 2 mg IVPUSH Q2H PRN PRN Reason: Breakthrough Pain Ondansetron HCl (Zofran) 4 mg IVPUSH Q6H PRN PRN Reason: Nausea/Vomiting Last Admin: 09/03/17 14:06 Dose: 4 mg Oxycodone/Acetaminophen (Percocet 325-5 Mg) 1 - 2 tab PO Q4H PRN PRN Reason: Pain Last Admin: 09/04/17 12:37 Dose: 2 tab Pyridoxine HCl (Vitamin B6-Pyridoxine) 100 mg PO BEDTIME CLAUDIA Last Admin: 09/03/17 20:22 Dose: 100 mg Scopolamine (Transderm-Scop) 1.5 mg TRDERM Q72H PRN PRN Reason: Nausea Last Admin: 09/03/17 15:07 Dose: 1.5 mg Senna (Senna) 8.6 mg PO BID PRN PRN Reason: Constipation Last Admin: 09/04/17 12:37 Dose: 8.6 mg Simvastatin (Zocor) 10 mg PO BEDTIME CLAUDIA Last Admin: 09/03/17 20:21 Dose: 10 mg Sodium Chloride (Saline Flush) 10 ml FLUSH ASDIRECTED PRN PRN Reason: Keep Vein Open Discontinued Medications Acetaminophen (Tylenol) 975 mg PO ONETIME ONE Stop: 09/03/17 09:31 Last Admin: 09/03/17 09:25 Dose: 975 mg Bupivacaine HCl (Marcaine 0.25%) Confirm Administered Dose 30 ml .ROUTE .STK- MED ONE Stop: 09/03/17 08:15 Last Admin: 09/03/17 11:38 Dose: 30 ml Bupivacaine HCl (Sensorcaine-Mpf 0.75%) Confirm Administered Dose 30 ml .ROUTE .STK-MED ONE Stop: 09/03/17 10:12 Cefazolin Sodium (Ancef) Confirm Administered Dose 2 gm .ROUTE .STK-MED ONE Stop: 09/03/17 08:15 Last Admin: 09/03/17 11:34 Dose: 2 gm Cefazolin Sodium (Ancef) Confirm Administered Dose 2 gm .ROUTE .STK-MED ONE Stop: 09/03/17 10:03 Morphine Sulfate 8 mg/Epinephrine HCl 0.3 mg/Cefuroxime Sodium 750 mg/Ketorolac Tromethamine 30 mg/Sodium Chloride 27.9 ml 0 mg .XX ONETIME ONE Stop: 09/03/17 10:31 Last Admin: 09/04/17 08:09 Dose: Not Given Dextrose/Water (Dextrose 50% In Water) Confirm Administered Dose 50 ml .ROUTE .STK-MED ONE Stop: 09/03/17 10:14 Diphenhydramine HCl (Benadryl) 25 mg IVPUSH Q6H PRN PRN Reason: Itching Stop: 09/03/17 14:30 Ephedrine Sulfate (Ephedrine Sulfate) Confirm Administered Dose 50 mg .ROUTE .STK-MED ONE Stop: 09/03/17 11:34 Fentanyl (Sublimaze) Confirm Administered Dose 100 mcg .ROUTE .STK-MED ONE Stop: 09/03/17 10:02 Fentanyl (Sublimaze) 50 mcg IVPUSH Q5M PRN PRN Reason: PAIN Stop: 09/03/17 14:30 Cefazolin Sodium/Dextrose 2 gm (/ Premix) 50 mls @ 100 mls/hr IV Q8H CLAUDIA Stop: 09/04/17 10:29 Last Admin: 09/04/17 09:19 Dose: 100 mls/hr Lidocaine HCl (Xylocaine-Mpf 1%) Confirm Administered Dose 4 mls @ as directed .ROUTE .STK-MED ONE Stop: 09/03/17 10:03 Lactated Ringer's (Ringers, Lactated) Confirm Administered Dose 1,000 mls @ as directed .ROUTE .STK-MED ONE Stop: 09/03/17 11:01 Lactated Ringer's (Ringers, Lactated) Confirm Administered Dose 1,000 mls @ as directed .ROUTE .STK-MED ONE Stop: 09/03/17 11:19 Iodine (Iodine 2% Mild Tincture) Confirm Administered Dose 30 ml .ROUTE .STK- MED ONE Stop: 09/03/17 08:15 Last Admin: 09/03/17 11:30 Dose: 18 ml Lidocaine HCl (Xylocaine-Mpf 1%) Confirm Administered Dose 5 ml .ROUTE .STK-MED ONE Stop: 09/03/17 10:09 Lidocaine/Sodium Bicarbonate (Buffered Lidocaine 1% In Ns 8.4%) 0.25 ml IDERM ONETIME PRN PRN Reason: Prior to IV Start Stop: 09/03/17 16:00 Last Admin: 09/03/17 08:44 Dose: 0.25 ml Midazolam HCl (Versed 1 Mg/Ml) Confirm Administered Dose 2 mg .ROUTE .STK-MED ONE Stop: 09/03/17 10:02 Morphine Sulfate (Duramorph Pf) Confirm Administered Dose 10 mg .ROUTE .STK-MED ONE Stop: 09/03/17 10:18 Non-Formulary Medication (Ubidecarenone) 100 mg PO DAILY COUNTS INCLUDE 234 BEDS AT THE [facility] Ondansetron HCl (Zofran) Confirm Administered Dose 4 mg .ROUTE .STK-MED ONE Stop: 09/03/17 10:02 Oxycodone HCl (Oxycontin) 10 mg PO ASDIRECTED COUNTS INCLUDE 234 BEDS AT THE [facility] Last Admin: 09/03/17 09:25 Dose: 10 mg Phenylephrine HCl (Phenylephrine In Ns 100 Mcg/Ml) Confirm Administered Dose 1 mg .ROUTE .STK-MED ONE Stop: 09/03/17 11:00 Phenylephrine HCl (Phenylephrine In Ns 100 Mcg/Ml) Confirm Administered Dose 1 mg .ROUTE .STK-MED ONE Stop: 09/03/17 11:08 Pregabalin (Lyrica) 50 mg PO ASDIRECTED COUNTS INCLUDE 234 BEDS AT THE [facility] Last Admin: 09/03/17 09:25 Dose: 50 mg Propofol (Diprivan 20 Ml) Confirm Administered Dose 200 mg .ROUTE .STK-MED ONE Stop: 09/03/17 10:02 Propofol (Diprivan 20 Ml) Confirm Administered Dose 200 mg .ROUTE .STK-MED ONE Stop: 09/03/17 11:11 Tranexamic Acid (Cyklokapron) Confirm Administered Dose 1,000 mg .ROUTE .STK- MED ONE Stop: 09/03/17 08:15 Last Admin: 09/03/17 11:40 Dose: 1,000 mg Vancomycin HCl (Vancomycin) Confirm Administered Dose 1 gm .ROUTE .STK-MED ONE Stop: 09/03/17 08:15 Last Admin: 09/03/17 11:39 Dose: 1 gm
--- NOTE | 2017-09-10 11:11 | PCM.OPNOTE ---
- General Post-Op/Procedure Note Date of Surgery/Procedure: 09/03/17 Operative Procedure(s): right total hip arthroplasty Pre Op Diagnosis: right hip osteoarthrosis Post-Op Diagnosis: Same Anesthesia Technique: Local, MAC, Spinal Primary Surgeon: Ray Khoury Anesthesia Provider: Frederic Wong Oil Producer: Britney Valle Oil Producer: Latoya Jones EBTerrance in mLs: 350 Complications: None Condition: Good Free Text/Narrative:: size 50 cup size 4 stem 36+0
--- NOTE | 2017-09-12 08:29 | OR ---
DATE OF OPERATION: 09/03/2017 SURGEON: Ray Khoury MD OPERATION PERFORMED: Right total hip arthroplasty. PREOPERATIVE DIAGNOSIS: Right hip osteoarthrosis. POSTOPERATIVE DIAGNOSIS: Right hip osteoarthrosis. ANESTHESIA: Local MAC with spinal. ANESTHESIA PROVIDER: Frederic Wong CRNA. ASSISTANTS: Britney Valle PA-C, and Latoya Jones LPN. ESTIMATED BLOOD LOSS: 350 mL. COMPLICATIONS: None. CONDITION: Stable. IMPLANTS: 1. [place] size 50 Tritanium solid acetabular cup. 2. [place] size 4 Accolade II stem. 3. [place] size 36 +0 ceramic Biolox head. DESCRIPTION OF PROCEDURE: The patient was identified in the preoperative holding area. Proper site was marked and identified by the surgeon. The patient was taken back to the operating theater, where after adequate anesthesia, the patient was placed in the left lateral decubitus position. Axillary roll was placed. All bony prominences were well padded. Pegs were then placed and well padded. The patient's gluteal fold was parallel to the floor. At this time, right hip was then sterilely prepped and draped in the usual sterile fashion. OR-wide time- out was performed. The patient received 2 grams of IV Ancef. At this time, a standard incision was centered over the greater trochanter. This was taken down to the IT band and gluteal fascia. This was then incised along the incisional length. Charnley retractor was then placed. Short external rotators and piriformis tendon were identified. Takedown of the short external rotators as well as capsulotomy were performed down to the level of the lesser trochanter. At this time, the hip was then dislocated. At this time, neck cut was then completed and attention was turned to the acetabulum. Anterior and posterior acetabular retractors were then placed. At this time, the pulvinar was removed along with any remaining labrum and starting with a size 44 reamer, I was able to ream up to a size 50, which was found to have good adequate bite. At this time, a 50-mm trial had good adequate fixation. A 50-mm Tritanium acetabular cup was then impacted into place, in roughly 45 degrees of abduction and 20 to 30 degrees of anteversion. At this time, the 36-mm acetabular liner was impacted into place. Attention was turned to the femur. Femoral elevator was placed. Starting with a box chisel out laterally and then a starter awl was placed down the canal. Starting with the 0 broach, I was able to broach up to a size 4, which was found to be rotationally and vertically stable. At this time, a 36 +0 trial was placed. The patient's leg lengths were restored and it was stable throughout range of motion. At this time, this was dislocated and a size 4 Accolade II stem was impacted into place with a 36 +0 Biolox ceramic head. Hip was then relocated. At this time, 1 L dilute Betadine solution along with 3 L of pulse lavage irrigation with Ancef were irrigated through the hip. Topical vancomycin powder and topical tranexamic acid were then placed. A #5 Ethibond suture was used for closure of the capsule, #2 barbed suture was used for closure of the IT band and gluteal fascia, 2-0 Vicryl was used subcutaneously, and Prineo was used for the skin. The patient was sent to PACU in a stable condition after the procedure. MMODAL /[id number]
== END 2017-09-04 13:28 | disposition home or self-care (01) | DRG 301 ==
LOC: JD.MS 08:29
PROVIDERS: ADMIT Orthopaedic Surgery; ATTEND Orthopaedic Surgery
PROC: 0SR90JZ Replacement of Right Hip Joint with Synthetic Substitute, Open Approach (ICD-10-PCS; principal; 2017-09-03)
PROC: 3E0U029 Introduction of Other Anti-infective into Joints, Open Approach (ICD-10-PCS; principal; 2017-09-03)
DX: M16.11 Unilateral primary osteoarthritis, right hip (principal); I70.1 Atherosclerosis of renal artery; R35.0 Frequency of micturition; E78.5 Hyperlipidemia, unspecified; J30.9 Allergic rhinitis, unspecified; F41.8 Other specified anxiety disorders; Z90.49 Acquired absence of other specified parts of digestive tract; G56.00 Carpal tunnel syndrome, unspecified upper limb; L98.8 Other specified disorders of the skin and subcutaneous tissue; R11.2 Nausea with vomiting, unspecified; H54.7 Unspecified visual loss; R01.1 Cardiac murmur, unspecified; K58.1 Irritable bowel syndrome with constipation; Z88.0 Allergy status to penicillin; Z88.2 Allergy status to sulfonamides; Z87.891 Personal history of nicotine dependence; Z88.8 Allergy status to other drugs, medicaments and biological substances; Z91.048 Other nonmedicinal substance allergy status; Z79.899 Other long term (current) drug therapy; Z79.82 Long term (current) use of aspirin
CPT/HCPCS: 01214; 36415; 51798; 73501-26-RT; 73501-RT; 80053; 85027; 86850; 86900; 86901; 87641; 93005; 94762; 97110-GP; 97116-GP; 97161-GP; 97165-GO; 97535-GO; A9270-GY; C1776; J0171; J0690; J0697; J1885; J2001; J2250; J2270; J2405; J2704; J2765; J3010; J3370; J3490; J7120